=== PATIENT | male | born 1950 | race Caucasian/White ===

== ENCOUNTER → 2019-09-29 16:20 | Outpatient (CLI) | payer MEDICARE, OTHER, SELFPAY ==
[2019-09-29 16:55] LABS: Basophils % 0.2 % (0.1-2.0); Eosinophils # 0.1 K/mm3 (0.0-0.4); Eosinophils % 1.2 % (0.1-12.0); Hematocrit 46.2 % (42.0-52.0); Hemoglobin 15.9 g/dL (14.1-18.0); Lymphocytes # 1.3 K/mm3 (0.7-4.5); Lymphocytes % 11.9 % (10-50); Mean Corpuscular HGB Conc 34.6 g/dL (31.8-35.4); Mean Corpuscular Hemoglobin 32.5 pg (27.0-31.2); Mean Corpuscular Volume 94.1 fl (80-94); Mean Platelet Volume 7.7 fl (7.4-10.4); Monocytes # 0.8 K/mm3 (0.1-1.0); Neutrophils # 8.9 K/mm3 (1.8-7.8); Neutrophils % 79.7 % (37.0-80.0); Platelet Count 244 K/mm3 (142-424); Red Blood Count 4.91 M/mm3 (4.60-6.20); Red Cell Distribution Width 13.2 % (11.5-17.5); White Blood Count 11.2 K/mm3 (4.8-10.8)
--- NOTE | 2019-09-29 17:00 | CT_ITS ---
PROCEDURE: CT ABDOMEN PELVIS WO CON CLINICAL INDICATION: RT LOWER ABD PAIN, R/O APPENDICITIS COMPARISON: No exams were available for comparison TECHNIQUE: Axial images obtained with sagittal and coronal reformats. All CT scans at the facility use one or more dose reduction, viz: automated exposure control, ma/kV adjustment per patient size (including targeted exams where dose is matched to indication, i.e. head), or iterative reconstruction technique. FINDINGS: LOWER THORAX: No acute finding ABDOMEN & PELVIS: There is a 12 mm hypodensity in the hepatic dome medially and may be due to a cyst. The liver has an otherwise unremarkable appearance. There is a gallstone present which measures 12 mm. There is mild thickening of the GE junction nonspecific and may be better evaluated with upper GI or endoscopy. The spleen, adrenal glands, and pancreas have an unremarkable appearance other than a few calcifications in the head of the pancreas region. There is a calcific density in the right upper quadrant measuring 3 mm image 29 series 3 which could be due to a stone within the cystic duct. MRCP may provide further evaluation. No renal or ureteral calculi. No hydronephrosis. No evidence of appendicitis. There is colonic diverticulosis but no evidence of diverticulitis. There are degenerative changes of the lumbar spine. There is a small umbilical hernia which contains fat. There is increased soft tissue density in the left inguinal region which may be due to prior hernia repair. IMPRESSION: 1. Cholelithiasis with possible cystic duct stone. Ultrasound and MRCP may provide further evaluation. 2. Calcifications in the pancreatic head region and could be due to sub adjacent calcified nodes or sequela from chronic pancreatitis. 3. No evidence of appendicitis. 4. Colonic diverticulosis without diverticulitis 5. Mild thickening of the GE junction nonspecific Dictated by: Candelario Harris MD 09/30/2019 08:13 Electronically signed by Candelario Harris MD in [place] 09/30/2019 08:13
[2019-09-29 17:24] LABS: Chloride 105 mmol/L (98-107); Sodium 137 mmol/L (136-145)
[2019-09-29 17:26] LABS: Blood Urea Nitrogen 15 mg/dl (9-20); Estimated Glomerular Filt Rate 96 ml/min (>60); GFR (African American) 116 ML/MIN (>60)
[2019-09-29 17:27] LABS: Alanine Aminotransferase 24 U/L (12-78); Albumin Level 4.2 g/dl (3.5-5.0); Albumin/Globulin Ratio 1.4 (1.1-1.8); Alkaline Phosphatase 81 U/L (38-126); Aspartate Amino Transferase 25 U/L (17-59); Bilirubin,Total 1.8 mg/dl (0.2-1.3); Calcium 9.6 mg/dl (8.4-10.2); Carbon Dioxide 25 mmol/L (22.0-30.0); Globulin 2.9 g/dL (1.3-3.2); Glucose 119 mg/dl (74-100); Total Protein,Serum 7.1 g/dl (6.3-8.2)
== END ==
PROVIDERS: Visit Provider Internal Medicine Adolescent Medicine
DX: R10.9 Unspecified abdominal pain (principal); R10.31 Right lower quadrant pain
CPT/HCPCS: 36415; 74176; 80053; 85025

== ENCOUNTER → 2019-10-10 10:18 | Outpatient (CLI) | payer MEDICARE, OTHER, SELFPAY ==
--- NOTE | 2019-10-10 10:24 | MR_ITS ---
PROCEDURE: MR ABDOMEN WO CON CLINICAL INDICATION: CYSTIC DUCT CALCULUS Right-sided abdominal pain with nausea COMPARISON: CT ABDOMEN PELVIS WO CON from 09/29/2019 TECHNIQUE: Routine multiplanar multi echo sequences are performed without gadolinium enhancement. MRCP sequences FINDINGS: There is an 8 mm stone in the gallbladder. No obvious cystic duct or common bile duct stone.. Unremarkable appearing pancreatic duct. There is a 13 mm cyst within the hepatic dome and a 4 mm cyst in the left hepatic lobe IMPRESSION: Cholelithiasis. No evidence of cystic duct or common bile duct stone Dictated by: Candelario Harris MD 10/15/2019 08:50 Electronically signed by Candelario Harris MD in [facility] 10/15/2019 08:50
== END ==
PROVIDERS: PCP Internal Medicine Adolescent Medicine; Visit Provider Internal Medicine Adolescent Medicine
DX: K80.20 Calculus of gallbladder without cholecystitis without obstruction (principal)
CPT/HCPCS: 74181; 76376

== ENCOUNTER → 2019-11-07 09:51 | Outpatient (CLI) | payer MEDICARE, OTHER, SELFPAY ==
--- NOTE | 2019-11-07 09:54 | US_ITS ---
PROCEDURE: US ABDOMEN LIMITED CLINICAL INDICATION: CALCULUS OF GB W/O OBSTRUCTION Right-sided abdominal pain COMPARISON: No exams were available for comparison FINDINGS: PANCREAS: Unremarkable. No obvious mass or abnormal fluid collection. No ductal dilatation LIVER: No focal liver lesions demonstrated. Homogeneous echogenicity. No intrahepatic biliary ductal dilatation evident. There is appropriate direction of blood flow within a non dilated portal vein RIGHT KIDNEY: Unremarkable. Normal size and echogenicity. No hydronephrosis GALLBLADDER: There is a 17 mm gallstone present. No gallbladder wall thickening, pericholecystic fluid, or biliary dilatation is evident. Common bile duct is 3 mm. IMPRESSION: Cholelithiasis otherwise negative right upper quadrant ultrasound Dictated by: Candelario Harris MD 11/07/2019 11:03 Electronically signed by Candelario Harris MD in [place] 11/07/2019 11:03
--- NOTE | 2019-11-07 09:55 | NM_ITS ---
PROCEDURE: NM HEPATOBILIARY W PHARM CLINICAL INDICATION: CALCULUS OF GB W/O OBSTRUCTION Right upper pain COMPARISON: US ABDOMEN LIMITED from 11/07/2019 TECHNIQUE: DOSE: 8.0 mCi Tc Choletec Fatty meal was utilized for gallbladder contraction as the patient did have a prominent gallstone. FINDINGS: Homogeneous activity is present within the hepatic parenchyma. Activity is present in the gallbladder by 15 minutes. Activity is present in the small bowel by 10 minutes. The gallbladder ejection fraction is calculated to be 86 percent. CCK-The patient did not report pain or other symptoms during the fatty meal. IMPRESSION: Unremarkable hepato biliary scan with normal gallbladder ejection fraction Dictated by: Candelario Harris MD 11/08/2019 16:05 Electronically signed by Candelario Harris MD in [place] 11/08/2019 16:05
== END ==
PROVIDERS: PCP Internal Medicine Adolescent Medicine; Visit Provider Internal Medicine Adolescent Medicine
DX: K80.20 Calculus of gallbladder without cholecystitis without obstruction (principal)
CPT/HCPCS: 76705; 78227; A9537

== ENCOUNTER → 2020-05-18 12:59 | Outpatient (CLI) | payer MEDICARE, OTHER, SELFPAY | PROVIDERS: PCP Internal Medicine Adolescent Medicine; Visit Provider Internal Medicine Adolescent Medicine | DX: Z20.822 Contact with and (suspected) exposure to COVID-19 (principal); U07.1 COVID-19 | CPT/HCPCS: U0003 ==

== ENCOUNTER 2023-10-19 11:41 | Outpatient (POV) | payer MEDICARE, SELFPAY | END 2023-10-19 23:59 | disposition home or self-care (01) | LOC: SC 11:41 | PROVIDERS: Visit Provider Specialist/Technologist | DX: Z00.00 Encounter for general adult medical examination without abnormal findings (principal) ==

== ENCOUNTER 2023-12-12 10:40 | Emergency (ER) | payer MEDICARE, SELFPAY ==
[2023-12-12 11:03] VITALS: BP 112/65; PULSE 62; RESP 18; TEMP 36.8; O2SAT 95; BMI 21.2
[2023-12-12 11:10] LABS: UTC Strep Screen (Rapid) Negative (Negative)
--- NOTE | 2023-12-12 11:12 | EXP.UTC ---
Discharge Plan Disposition Patient Disposition: Home, Self-Care Condition: Good Prescriptions Prescriptions: New azithromycin [Zithromax] 250 mg tablet 250 mg PO UD DOSE PK Qty: 6 0RF Rx Instructions: Take two (2) tablets today, then one (1) tablet days #2 thru #5 benzonatate 100 mg capsule 100 mg PO TIDP PRN (Reason: Cough) Qty: 30 0RF Referrals Follow up/Referrals: Kraig Velazquez MD [Primary Care Provider] - See instructions Activity Restrictions/Add. Instructions Additional Instructions/Restrictions: Drink plenty of fluids. Take tylenol or ibuprofen for pain or fever. Take the medications as directed. Follow up with your regular doctor. GO TO THE ER FOR ANY WORSENING SYMPTOMS Clinical Impressions Clinical Impression: Sinusitis, Bronchitis, Acute viral syndrome Instructions Patient Instructions: Sinusitis, DI for Sinusitis Print Language Print Language: Arabic Discharge ED Provider: Homero Gary [facility] HPI General Stated complaint: sore throat, cough, headache Mode of Arrival: Ambulatory Source of Information: Patient Limitations: No Limitations Time Seen by Provider: 12/12/23 11:11 Description of Symptoms (Recalled from Triage Doc. by RN): Pt reports cough and sore throat, also reports ear ache with both ears. HEENT Symptoms (Recalled from RN notes): Yes (c/o sore throat, judi ear pain) Resp Symptoms (Recalled from RN notes): No Skin Symptoms (Recalled from RN notes): No MS Symptoms (Recalled from RN notes): No Functional Status (Recalled from RN notes): n/a Related Data Previous Rx's ?Medication ?Instructions ?Recorded azithromycin 250 mg tablet 250 mg PO UD DOSE PK #6 tabs 12/12/23 (Zithromax) benzonatate 100 mg capsule 100 mg PO TIDP PRN Cough #30 caps 12/12/23 Allergies Allergy/AdvReac Type Severity Reaction Status Date / Time No Known Allergies Allergy Verified 09/29/23 14:18 Worker's Comp Is this a Worker's Comp case?: No [facility] Disclaimer: The information contained in this section may have been updated after the patient was seen, as this information can be updated by other users. Medical History (Updated 12/12/23 @ 11:53 by Homero Gary APRN) Impacted cerumen Social History (Reviewed 09/29/23 @ 14:18 by VICK Porras Smoking Status: Former smoker alcohol intake: current alcohol intake frequency: holidays/special occasions only substance use type: denies use current occupational status: employed Travel in the last 8 weeks: None ROS Obtained: Yes All systems reviewed & no additional complaints except as documented Constitutional Constitutional: Reports poor appetite Eyes Eyes: Reports system reviewed and no additional complaints, except as documented ENT Ears, Nose, Mouth, and Throat: Reports as per HPI Cardiovascular Cardiovascular: Reports system reviewed and no additional complaints, except as documented and Denies chest pain Respiratory Respiratory: Denies shortness of breath, Denies chest congestion, Reports cough, Denies stridor and Denies wheezing Gastrointestinal Gastrointestingal: Reports system reviewed and no additional complaints, except as documented; Denies abdominal pain, diarrhea or vomiting Musculoskeletal Musculoskeletal: Reports system reviewed and no additional complaints, except as documented and Denies arthralgias Integumentary/Breasts Skin/Breast: Reports system reviewed and no additional complaints, except as documented and Denies rash Neurologic Neurologic: Denies paresthesias Allergic/Immunologic Allergic/Immunologic: Denies wheezing Physical Exam General General appearance: alert and in no apparent distress Eye Eye exam: Present normal appearance, PERRL and EOMI ENT ENT exam: Present mucous membranes moist and normal external ear exam Expanded ENT Exam External ear exam: Present normal external inspection TM/Canal exam: Bilateral TM: erythema and bulging Nose exam: Absent sinus tendern
[2023-12-12 12:07] VITALS: BP 112/65; PULSE 62; RESP 18; TEMP 36.8; O2SAT 95
== END 2023-12-12 12:00 | disposition home or self-care (01) ==
PROVIDERS: Emergency Provider Nurse Practitioner Family; PCP Internal Medicine Adolescent Medicine
DX: U07.1 COVID-19 (principal); J20.9 Acute bronchitis, unspecified; J01.90 Acute sinusitis, unspecified; H92.03 Otalgia, bilateral
CPT/HCPCS: 87635; 87880; 99204; 99212; G0463

== ENCOUNTER 2024-03-07 09:00 | Outpatient (POV) | payer MEDICARE, SELFPAY | END 2024-03-07 23:59 | disposition home or self-care (01) | LOC: SC 03-08 06:43 | PROVIDERS: Visit Provider Dermatology | DX: Z00.00 Encounter for general adult medical examination without abnormal findings (principal) ==